=== PATIENT | male | born 1950 | race Caucasian/White ===

== ENCOUNTER 2017-07-25 19:07 | Emergency (ER) | payer OTHER ==
[~2017-07-25] VITALS: Ht 180.3 cm; Wt 131.0 kg
[~2017-07-25 19:07] MED LIST: ADULT LOW DOSE81 M1 PO; DITROPAN2.5 MG PO; FISH OIL SOFTG1 EACH PO; HYDROCHLOROTH12.5 M1 PO; IBUPROFEN100 M2 PO; LOVASTATIN10 MG; METOPROLOL SUC100 MG PO; MULTIVITAMIN1 EAC1 PO; TRICOR145 MG PO; Tricor PO; VITAMIN C500 M1 PO
[2017-07-25] MEDS ORDERED: ULTRAM50 MG PO (20:15)
[2017-07-25 20:38] VITALS: BP 150/84
== END 2017-07-25 20:49 | disposition home or self-care (01) ==
LOC: EME 19:07 → RME 19:07
DX: M54.31 Sciatica, right side (principal); M54.16 Radiculopathy, lumbar region; J45.909 Unspecified asthma, uncomplicated; I10 Essential (primary) hypertension; Z87.442 Personal history of urinary calculi; Z85.46 Personal history of malignant neoplasm of prostate; Z88.2 Allergy status to sulfonamides
CPT/HCPCS: 99281; 99284; J1100

== ENCOUNTER → 2017-08-10 | Outpatient (CLI) | payer OTHER ==
[~2017-08-10] MED LIST changes: +ULTRAM50 MG PO
== END | disposition home or self-care (01) ==
LOC: RAD 13:39
PROC: 3E0R3KZ Introduction of Other Diagnostic Substance into Spinal Canal, Percutaneous Approach (ICD-10-PCS; principal; 2017-08-10)
DX: M48.061 Spinal stenosis, lumbar region without neurogenic claudication (principal); M51.85 Other intervertebral disc disorders, thoracolumbar region; M46.96 Unspecified inflammatory spondylopathy, lumbar region; M25.78 Osteophyte, vertebrae; M24.28 Disorder of ligament, vertebrae
CPT/HCPCS: 62304; 72132

== ENCOUNTER 2017-09-07 05:50 | Inpatient (IN) | payer OTHER ==
[~2017-09-07] VITALS: Ht 180.3 cm; Wt 128.4 kg
[~2017-09-07 05:50] MED LIST changes: +8HR ARTHRITIS650 M1 PO; +FISH OIL 1,0001 EAC7 PO; +FOLIC ACID1 MG PO; +HYDROCHLOROTHIA25 MG PO; +MEN 50 PLUS MU1 EACH PO; +METHOTREXATE2.5 MG PO; +MEVACOR20 MG PO; +OXYBUTYNIN CHLOR5 M1 PO; +TAMBOCOR100 MG PO; +VITAMIN C500 M6 PO; +XARELTO20 MG PO; +ZANAFLEX4 M1 PO
[2017-09-07 06:27] VITALS: BP 143/69
[2017-09-07 15:07] VITALS: BP 141/82
[2017-09-07 19:47] VITALS: BP 129/60
[2017-09-08 03:59] VITALS: BP 127/58
[2017-09-08 07:36] VITALS: BP 114/57
[2017-09-08] MEDS ORDERED: METHOTREXATE2.5 MG PO (07:58)
[2017-09-08] MEDS ORDERED: FISH OIL 1,0001 EAC7 PO (08:00)
[2017-09-08] MEDS ORDERED: TIZANIDINE HCL4 MG PO (08:01)
[2017-09-08] MEDS ORDERED: XARELTO20 MG PO (08:01)
[2017-09-08] MEDS ORDERED: HYDROCODON-ACE1 EAC7 PO (08:01)
[2017-09-08] MEDS ORDERED: ADULT FOLDING1 EACH MC (08:05)
[2017-09-08] MEDS ORDERED: HYDROCODON-ACE1 EAC9 PO (11:18)
[2017-09-08 11:22] VITALS: BP 104/59
== END 2017-09-08 12:45 | disposition home or self-care (01) | DRG 517 ==
LOC: SDC 05:50 → 2SOUTH 08:45 → ENRESERV 10:09 → SDC 11:13 → ENRESERV 13:38 → 3EAST 15:05 → SDC 16:16 → 3EAST 09-08 12:45
PROC: 01NB0ZZ Release Lumbar Nerve, Open Approach (ICD-10-PCS; principal; 2017-09-07)
DX: M48.07 Spinal stenosis, lumbosacral region (principal); M48.061 Spinal stenosis, lumbar region without neurogenic claudication; M51.16 Intervertebral disc disorders with radiculopathy, lumbar region; M25.78 Osteophyte, vertebrae; R53.1 Weakness; I48.0 Paroxysmal atrial fibrillation; I10 Essential (primary) hypertension; E11.9 Type 2 diabetes mellitus without complications; M06.9 Rheumatoid arthritis, unspecified; G47.30 Sleep apnea, unspecified; J45.909 Unspecified asthma, uncomplicated; G43.909 Migraine, unspecified, not intractable, without status migrainosus; E78.5 Hyperlipidemia, unspecified; E78.00 Pure hypercholesterolemia, unspecified; I73.9 Peripheral vascular disease, unspecified; M19.90 Unspecified osteoarthritis, unspecified site; E66.9 Obesity, unspecified; Z68.39 Body mass index [BMI] 39.0-39.9, adult; Z95.0 Presence of cardiac pacemaker; Z87.74 Personal history of (corrected) congenital malformations of heart and circulatory system
CPT/HCPCS: 72020; 76000; J0330; J0690; J1170; J1885; J2250; J2405; J3370; J3480